=== PATIENT | female | born 1965 | race Hispanic/Latino ===

== ENCOUNTER 2024-09-09 10:48 | Emergency (ER) | payer OTHER ==
[~2024-09-09] VITALS: Ht 165.1 cm; Wt 79.3 kg
[2024-09-09] VITALS (8 sets, daily range): BP systolic 123–172; BP diastolic 85–106
[2024-09-09] MEDS ORDERED: ZPAK PO (12:42)
[2024-09-09] MEDS ORDERED: BENZONATATE200 MG PO (12:42)
[2024-09-09] MEDS ORDERED: MEDDOSEPAK PO (12:42)
== END 2024-09-09 13:00 | disposition home or self-care (01) ==
LOC: ED 10:48
DX: J20.9 Acute bronchitis, unspecified (principal); I10 Essential (primary) hypertension; E03.9 Hypothyroidism, unspecified